=== PATIENT | male | born 1995 | race Caucasian/White ===

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

== ENCOUNTER 2018-05-01 21:09 | Emergency (ER) | payer OTHER ==
[~2018-05-01] VITALS: Ht 170.2 cm; Wt 60.8 kg
[2018-05-01 21:21] VITALS: BP 147/72
[2018-05-01 22:05] LABS: BASOPHILS # (AUTO) 0.03 x10^3/uL (0-0.3); BASOPHILS % (AUTO) 0 % (0-1); EOSINOPHILS # (AUTO) 0.08 x10^3/uL (0-0.8); EOSINOPHILS % (AUTO) 1 % (1-7); LYMPHOCYTES # (AUTO) 2.61 x10^3/uL (1-6.1); LYMPHOCYTES % (AUTO) 23 % (22-44); MD NO; MEAN CORPUSCULAR HEMOGLOBIN 27.7 pg (27.5-34.5); MEAN CORPUSCULAR HGB CONC 33.3 g/dL (33.2-36.2); MEAN CORPUSCULAR VOLUME 83.2 fL (81-97); MEAN PLATELET VOLUME 7.5 fL (7.4-10.4); MONOCYTES # (AUTO) 1.15 x10^3/uL (0-1.4); MONOCYTES % (AUTO) 10 % (2-9); NEUTROPHILS # (AUTO) 7.41 x10^3/uL (1.8-8.0); NEUTROPHILS % (AUTO) 66 % (42-75); PLATELET COUNT 206 x10^3/uL (130-400); RED BLOOD COUNT 5.39 x10^6/uL (4.38-5.82); RED CELL DISTRIBUTION WIDTH 13.6 % (9.4-14.8)
[2018-05-01 22:16] LABS: ALBUMIN 3.4 g/dL (3.4-5.0); ANION GAP 3 mmol/L (5-15); CALCIUM 8.6 mg/dL (8.5-10.1); CHLORIDE 101 mmol/L (98-107); CREATININE 0.91 mg/dL (0.7-1.3)
--- NOTE | 2018-05-01 23:32 | NUR ---
Patient/Caregiver given discharge instructions and they have confirmed that they understand the instructions. Patient ambulatory with steady gait.
== END 2018-05-01 23:35 | disposition home or self-care (01) ==
LOC: ED 23:34
DX: L02.415 Cutaneous abscess of right lower limb (principal)
CPT/HCPCS: 10060; 36415; 80048; 82040; 85025; 99284

== ENCOUNTER 2018-05-27 17:30 | Emergency (ER) | payer MEDICAID, OTHER ==
[~2018-05-27] VITALS: Ht 170.2 cm; Wt 63.1 kg
--- NOTE | 2018-05-27 17:33 | NUR ---
NO ANSWER X1
--- NOTE | 2018-05-27 17:42 | NUR ---
CALLED FOR PT, PER FRIEND PT IS IN THE RESTROOM IN THE LOBBY.
[2018-05-27 17:46] VITALS: BP 125/79
--- NOTE | 2018-05-27 18:21 | NUR ---
RIGHT THIGH PAIN S/P fall
== END 2018-05-27 18:53 | disposition home or self-care (01) ==
LOC: ED 18:05
DX: S70.11XA Contusion of right thigh, initial encounter (principal); W00.0XXA Fall on same level due to ice and snow, initial encounter; Y93.89 Activity, other specified; Y92.89 Other specified places as the place of occurrence of the external cause; Y99.8 Other external cause status
CPT/HCPCS: 99283

== ENCOUNTER 2019-05-31 05:20 | Emergency (ER) | payer SELFPAY ==
[~2019-05-31] VITALS: Ht 170.2 cm; Wt 70.0 kg
[2019-05-31 05:22] VITALS: BP 120/66
--- NOTE | 2019-05-31 05:45 | NUR ---
PROVIDED PT WITH ICE PACK AND ELEVATED RIGHT HAND ON PILLOW
[2019-05-31] MEDS ORDERED: NEOSPORIN OINT. PKT 1 PACKET ONE (06:21)
--- NOTE | 2019-05-31 06:32 | NUR ---
[employer]IR[employer]FT ARMAMENT MECHANIC AT PT'S BEDSIDE FOR WOUND CLEANING AND APPLY BACITRACIN
== END 2019-05-31 06:46 | disposition home or self-care (01) ==
LOC: ED 06:26
DX: S60.221A Contusion of right hand, initial encounter (principal); X58.XXXA Exposure to other specified factors, initial encounter; Y93.89 Activity, other specified; Y92.89 Other specified places as the place of occurrence of the external cause; Y99.8 Other external cause status
CPT/HCPCS: 99283

== ENCOUNTER 2019-06-19 20:08 | Inpatient (IN) | payer OTHER ==
[~2019-06-19] VITALS: Ht 170.2 cm; Wt 70.4 kg
[2019-06-19] MEDS ORDERED: KETOROLAC 30 MG/1 ML IVPush ONE (21:30)
[2019-06-19] MEDS ORDERED: SODIUM CHLORIDE FLUSH 10ML SYR IVF ONE ×2 (21:30→22:00)
[2019-06-19 21:35] LABS: BASOPHILS # (AUTO) 0.04 x10^3/uL (0-0.1); BASOPHILS % (AUTO) 0 % (0-1); EOSINOPHILS # (AUTO) 0.07 x10^3/uL (0-0.4); EOSINOPHILS % (AUTO) 1 % (1-7); LYMPHOCYTES # (AUTO) 1.72 x10^3/uL (1-3.4); LYMPHOCYTES % (AUTO) 12 % (22-44); MD NO; MEAN CORPUSCULAR HEMOGLOBIN 27.7 pg (27.5-34.5); MEAN CORPUSCULAR HGB CONC 33.3 g/dL (33.2-36.2); MEAN CORPUSCULAR VOLUME 83.2 fL (81-97); MEAN PLATELET VOLUME 7.3 fL (7.4-10.4); MONOCYTES # (AUTO) 1.32 x10^3/uL (0.2-0.8); MONOCYTES % (AUTO) 9 % (2-9); NEUTROPHILS # (AUTO) 10.92 x10^3/uL (1.8-6.8); NEUTROPHILS % (AUTO) 78 % (42-75); PLATELET COUNT 226 x10^3/uL (130-400); RED BLOOD COUNT 4.97 x10^6/uL (4.38-5.82); RED CELL DISTRIBUTION WIDTH 12.9 % (9.4-14.8)
[2019-06-19] MEDS ORDERED: CEFTRIAXONE PMX 1GM/50ML 50 ML ONE (21:41)
[2019-06-19 21:46] LABS: ALANINE AMINOTRANSFERASE 96 U/L (12-78); ALBUMIN 3.1 g/dL (3.4-5.0); ANION GAP 7 mmol/L (5-15); CALCIUM 9.2 mg/dL (8.5-10.1); CHLORIDE 95 mmol/L (98-107); CREATININE 0.93 mg/dL (0.7-1.3)
[2019-06-19 21:51] LABS: ALKALINE PHOSPHATASE 113 U/L (45-117); BILIRUBIN,TOTAL 0.2 mg/dL (0.2-1.0); TOTAL PROTEIN 8.9 g/dL (6.4-8.2); TROPONIN I < 0.015 ng/mL (0.000-0.045)
[2019-06-19] MEDS ORDERED: CEFTRIAXONE PMX 1GM/50ML 50 ML IVPB ONE (22:00)
[2019-06-19] MEDS ORDERED: SODIUM CHLORIDE 0.9% 1,000ML IVBOLUS ONE (22:00)
[2019-06-19] MEDS ORDERED: AZITHROMYCIN 500 MG in SODIUM CHLORIDE 0.9% 250 ML IVPB ONE (22:00)
[2019-06-19] MEDS ORDERED: KETOROLAC 30 MG/1 ML ONE (22:09)
[2019-06-20] MEDS ORDERED: ONDANSETRON 2MG/ML, 2ML IVPush PRN
[2019-06-20] MEDS ORDERED: KETOROLAC 30 MG/1 ML IV PRN
[2019-06-20] MEDS ORDERED: hydrALAzine 20 MG/ML, 1ML IVPush PRN
[2019-06-20] MEDS ORDERED: ACETAMINOPHEN 325 MG TABLET PO PRN
[2019-06-20 00:30] VITALS: BP 96/50
[2019-06-20 00:36] LABS: TROPONIN I < 0.015 ng/mL (0.000-0.045)
[2019-06-20] MEDS: ENOXAPARIN 40 MG/0.4 ML SQ SCH (02:00)
[2019-06-20] MEDS: SODIUM CHLORIDE 0.9% 1,000 ML IV SCH ×3 (02:06→16:46)
[2019-06-20 05:25] LABS: BASOPHILS # (AUTO) 0.01 x10^3/uL (0-0.1); BASOPHILS % (AUTO) 0 % (0-1); EOSINOPHILS # (AUTO) 0.09 x10^3/uL (0-0.4); EOSINOPHILS % (AUTO) 1 % (1-7); LYMPHOCYTES # (AUTO) 2.03 x10^3/uL (1-3.4); LYMPHOCYTES % (AUTO) 24 % (22-44); MD NO; MEAN CORPUSCULAR HEMOGLOBIN 27.6 pg (27.5-34.5); MEAN CORPUSCULAR HGB CONC 33.4 g/dL (33.2-36.2); MEAN CORPUSCULAR VOLUME 82.8 fL (81-97); MEAN PLATELET VOLUME 7.7 fL (7.4-10.4); MONOCYTES # (AUTO) 0.99 x10^3/uL (0.2-0.8); MONOCYTES % (AUTO) 12 % (2-9); NEUTROPHILS # (AUTO) 5.45 x10^3/uL (1.8-6.8); NEUTROPHILS % (AUTO) 64 % (42-75); PLATELET COUNT 183 x10^3/uL (130-400); RED BLOOD COUNT 4.37 x10^6/uL (4.38-5.82); RED CELL DISTRIBUTION WIDTH 12.7 % (9.4-14.8)
[2019-06-20 05:34] LABS: ANION GAP 7 mmol/L (5-15); CALCIUM 8.3 mg/dL (8.5-10.1); CHLORIDE 101 mmol/L (98-107); CREATININE 0.82 mg/dL (0.7-1.3)
[2019-06-20 05:36] LABS: MICROSCOPIC INDICATED
[2019-06-20 05:39] LABS: TROPONIN I < 0.015 ng/mL (0.000-0.045)
[2019-06-20 05:43] LABS: CULTURE INDICATED? NO
[2019-06-20 05:44] LABS: AMPHETAMINE SCREEN, URINE Positive (Negative); BARBITURATE SCREEN, URINE Negative (Negative); BENZODIAZEPINE SCREEN, URINE Negative (Negative); CANNABINOID SCREEN, URINE Negative (Negative); COCAINE SCREEN, URINE Negative (Negative); METHADONE SCREEN, URINE Negative (Negative); OPIATE SCREEN, URINE Positive (Negative)
[2019-06-20 08:13] VITALS: BP 121/74
[2019-06-20] MEDS: SENNA/DOCUSATE TABLET PO SCH (08:36)
[2019-06-20] MEDS: NICOTINE 14MG/24 HR PATCH.TD24 TD SCH (08:36)
[2019-06-20] MEDS: OXYcodone/APAP 5/325MG TABLET PO PRN ×2 (08:40→13:48)
[2019-06-20] MEDS ORDERED: LEVO750T26 PO ×2 (12:11)
[2019-06-20] MEDS ORDERED: POTASSIUM CHLORIDE 20 MEQ TAB.ER.PRT PO ONE (12:30)
[2019-06-20 13:06] VITALS: BP 115/62
[2019-06-20] MEDS: METHADONE 10 MG TABLET PO SCH (16:46)
[2019-06-20 20:41] VITALS: BP 120/69
[2019-06-20] MEDS ORDERED: AZITHROMYCIN 500 MG in SODIUM CHLORIDE 0.9% 250 ML IV SCH (22:00)
[2019-06-20] MEDS ORDERED: CEFTRIAXONE PMX 1GM/50ML 50 ML IV SCH (22:00)
[2019-06-20 22:50] VITALS: BP 121/74
[2019-06-21] MEDS: ENOXAPARIN 40 MG/0.4 ML SQ SCH
[2019-06-21] MEDS: SODIUM CHLORIDE 0.9% 1,000 ML IV SCH ×3 (00:29→17:09)
[2019-06-21] MEDS: METHADONE 10 MG TABLET PO SCH ×3 (00:29→16:55)
[2019-06-21 01:52] VITALS: BP 126/68
[2019-06-21] MEDS: OXYcodone/APAP 5/325MG TABLET PO PRN ×2 (01:56→11:23)
[2019-06-21 08:05] VITALS: BP 118/65
[2019-06-21] MEDS: SENNA/DOCUSATE TABLET PO SCH (09:00)
[2019-06-21] MEDS: NICOTINE 14MG/24 HR PATCH.TD24 TD SCH (09:35)
[2019-06-21 13:01] VITALS: BP 98/56
[2019-06-21] MEDS ORDERED: POTASSIUM CHLORIDE 20 MEQ TAB.ER.PRT PO ONE (13:30)
[2019-06-21] MEDS ORDERED: DOXY100T PO ×3 (13:57→13:59)
== END 2019-06-21 17:41 | disposition home or self-care (01) | DRG 193 ==
LOC: ED 20:30 → EDIP 23:25 → 3WST 06-20 00:24 → 3N 06-20 22:30
PROVIDERS: ADMIT Family Medicine; ATTEND Family Medicine
DX: J15.9 Unspecified bacterial pneumonia (principal); J96.01 Acute respiratory failure with hypoxia; E87.1 Hypo-osmolality and hyponatremia; F11.20 Opioid dependence, uncomplicated; B18.2 Chronic viral hepatitis C; B95.8 Unspecified staphylococcus as the cause of diseases classified elsewhere; F17.200 Nicotine dependence, unspecified, uncomplicated; D72.829 Elevated white blood cell count, unspecified
CPT/HCPCS: 36415; 71046; 80048; 80053; 80074; 80307; 81001; 83605; 84145; 84484; 85025; 87040; 87521; 87806; 93005; 96365; G0378; J0456; J0696; J1650; J1885; G0475; J7030; J7050

== ENCOUNTER 2019-09-16 16:07 | Emergency (ER) | payer MEDICAID ==
[~2019-09-16] VITALS: Ht 170.2 cm; Wt 65.9 kg
[~2019-09-16 16:07] MED LIST: DOXY100T PO; LEVO750T26 PO
--- NOTE | 2019-09-16 16:12 | NUR ---
NIL X1
[2019-09-16 16:26] VITALS: BP 111/63
[2019-09-16] MEDS ORDERED: LIDOCAINE-MPF 1%, 5ML INFIL ONE (16:30)
--- NOTE | 2019-09-16 17:35 | NUR ---
GOLF BALL COVER TREATER: PT AMBULATORY TO ROOM FROM LOBBY
--- NOTE | 2019-09-16 17:39 | NUR ---
PT HERE FOR RIGHT ARM ABCESS. PT REPORTS THAT HE USES IV DRUG. PT REPORTS THAT SWELLING AND TIGHTNESS PRESENT FOR A FEW DAYS. PT REPORTS VERY PAINFUL TO TOUCH. PT CONNECTED TO MONITORS AND I/D SET UP COMPLETE.
[2019-09-16] MEDS ORDERED: LIDOCAINE-MPF 1%, 5ML ONE (17:42)
[2019-09-16] MEDS ORDERED: HYDROcodone/APAP 5/325 TABLET ONE (18:27)
[2019-09-16] MEDS ORDERED: HYDROcodone/APAP 5/325 TABLET PO ONE (18:30)
--- NOTE | 2019-09-16 18:34 | NUR ---
Patient/Caregiver given discharge instructions and they have confirmed that they understand the instructions. Patient ambulatory with steady gait.
== END 2019-09-16 18:37 | disposition home or self-care (01) ==
LOC: ED 18:23
DX: L02.413 Cutaneous abscess of right upper limb (principal)
CPT/HCPCS: 10060; 99283

== ENCOUNTER 2019-11-20 15:37 | Emergency (ER) | payer MEDICAID ==
[~2019-11-20] VITALS: Ht 170.2 cm; Wt 66.0 kg
[2019-11-20 15:46] VITALS: BP 129/68
[2019-11-20] MEDS ORDERED: LIDOCAINE-MPF 1%, 5ML INFIL ONE (16:00)
--- NOTE | 2019-11-20 17:01 | NUR ---
STORM DOOR MAKER: PT TO ROOM FROM LOBBY
[2019-11-20] MEDS ORDERED: LIDOCAINE-MPF 1%, 5ML ONE (17:06)
--- NOTE | 2019-11-20 17:09 | NUR ---
KEVIN PULLED FOR PROVIDER ADMIN.
--- NOTE | 2019-11-20 17:49 | NUR ---
AT BEDSIDE FOR ASSESSMENT.
--- NOTE | 2019-11-20 18:32 | NUR ---
PROVIDER AT BEDSIDE FOR I&D.
[2019-11-20] MEDS ORDERED: CEFTRIAXONE 1,000 MG IM ONE (19:30)
[2019-11-20] MEDS ORDERED: SULFAMETH./TRIMETHOPRIM DS 800MG/160MG TABLET PO ONE (19:30)
[2019-11-20] MEDS ORDERED: CEFTRIAXONE 1,000 MG ONE (19:33)
[2019-11-20] MEDS ORDERED: SULFAMETH./TRIMETHOPRIM DS 800MG/160MG TABLET ONE (19:33)
== END 2019-11-20 20:12 | disposition home or self-care (01) ==
LOC: ED 17:15
DX: L02.413 Cutaneous abscess of right upper limb (principal); F17.200 Nicotine dependence, unspecified, uncomplicated
CPT/HCPCS: 10060; 96372; 99283; J0696